=== PATIENT | female | born 1980 | race Caucasian/White ===

== ENCOUNTER 2016-09-14 01:52 | Observation (INO) | payer OTHER ==
--- NOTE | ~2016-09-14 | CR20 ---
[facility] A Service of [facility] RADIOLOGY TEXT RESULTS PATIENT: ERIC PAREKH LOCATION: [facility] : [birth year] UNIT #: [id number] AGE: [address]: EDGAR SALMERON APRN SEX: F ORDER DR: [id number] [facility] [address] [place], [place] [address] [id number] E MR#: [id number] Acc #: [id number] NAME: ERIC PAREKH : 1980 SEX: F STUDY DATE/TIME: 09/14/2016 1:01 UNIT: [facility] ROOM: STUDY DESCRIPTION: CR Ankle Min 3 Views Lt Attending Physician: Edgar Salmeron Aprn Ordering Physician: Pasha Cordon M.D. Primary Care Physician: Primary Care Physician No MEDICAL IMAGING REPORT This report is preliminary unless electronic signature is present EXAM Left ankle, 09/14/2016 INDICATION Fell down stairs tonight. Pain and swelling laterally, bruising. TECHNIQUE 3 views left ankle. No comparisons. FINDINGS There is a complete distal transverse fracture through the fibula. There is overlying soft tissue swelling. There is interarticular extension of the fracture. Some of the views are obscured by overlying brace or splint artifact. The ankle mortise appears intact otherwise. No additional fracture. There are degenerative changes in the tibiotalar joint and flattening of the talar dome. IMPRESSION 1. There is a complete nondisplaced fracture transversely through the distal fibula. There is interarticular extension. Overlying soft tissue swelling. 2. Degenerative change of the tibiotalar joint with flattening of the talar dome. STAT * RESULT Dictated by... Rickey Cisneros M.D. THIS IS AN ELECTRONICALLY VERIFIED REPORT [facility] A Service of [facility] RADIOLOGY TEXT RESULTS PATIENT: ERIC PAREKH LOCATION: [facility] : 82 UNIT #: [id number] AGE: [address]: EDGAR SALMERON APRN SEX: F ORDER DR: Rickey Cisneros M.D. at 09/14/2016 6:28 AM JACOBY/linda TD: 09/14/2016 04:56 JOB #: [id number] MEDICAL IMAGING REPORT Page 1 of 1 COPY
--- NOTE | ~2016-09-14 | CR252 ---
[facility] A Service of [facility] RADIOLOGY TEXT RESULTS PATIENT: ERIC PAREKH LOCATION: [facility] 458-01 : 82 UNIT #: [id number] AGE: [address]: Emanuel Abdi MD SEX: F ORDER DR: [id number] [facility] [address] [facility] [place], [place] [address] [id number] MR#: [id number] Acc #: [id number] NAME: ERIC PAREKH : 1980 SEX: F STUDY DATE/TIME: 09/14/2016 1:06 UNIT: [facility] ROOM: STUDY DESCRIPTION: CR Tibia and Fibula 2 Views Lt Attending Physician: Edgar Salmeron Aprn Ordering Physician: Pasha Cordon M.D. Primary Care Physician: Primary Care Physician No MEDICAL IMAGING REPORT This report is preliminary unless electronic signature is present EXAM Left tibia and fibula 09/14/2016 INDICATION Ankle fracture. Fell down the steps tonight. Pain. TECHNIQUE 2 views of the tib-fib performed on the left. COMPARISON None. FINDINGS There is degenerative change of the tibiotalar joint with flattening of the talar dome. There is a transversely oriented complete fracture through the distal aspect of the fibula better demonstrated on the ankle series same date. No additional fracture. IMPRESSION 1. The patient has a known fracture through the distal aspect of the fibula. No additional fracture is identified on the tib-fib series. 2. Degenerative changes of the tibiotalar joint. Dictated by... Rickey Cisneros M.D. THIS IS AN ELECTRONICALLY VERIFIED REPORT Rickey Cisneros M.D. at 09/14/2016 10:01 PM JACOBY/lynne TD: 09/14/2016 06:50 JOB #: [id number] [facility] A Service of [facility] RADIOLOGY TEXT RESULTS PATIENT: ERIC PAREKH LOCATION: [facility] 458-01 : [birth year] UNIT #: [id number] AGE: [address]: Emanuel Abdi MD SEX: F ORDER DR: MEDICAL IMAGING REPORT Page 1 of 1 COPY
--- NOTE | ~2016-09-14 | HP ---
Unit #: [id number] #: [id number] Patient: ERIC PAREKH [id number] [address] [place], [place] [address] [id number] I MR#: [id number] NAME: ERIC PAREKH ROOM: 458 Age: 36 Sex: F Admission Date: 09/14/2016 : 1980 Attending Physician: Emanuel Abdi M.D. Primary Care Physician: No Primary Care Physician HISTORY AND PHYSICAL CHIEF COMPLAINT Left ankle injury. HISTORY OF PRESENT ILLNESS Eric is a 36-year-old female who reports that she tripped going down some steps inverting her left ankle. She was taken to the emergency room where x-rays were taken. She was noted to have a minimally displaced Gurrola A distal fibula fracture of the left ankle. She also noticed some pain in the right ankle and was having difficulty weight bearing. She had some difficulty with pain management. My partner was called and she was placed in observation overnight for pain control. On evaluation this morning, pain is much improved. She was resting in bed. She denied any other injuries. No prior problems with her ankles. She describes a dull ache. It is worse with motion, better with rest. No loss of consciousness with the injury. No other symptoms related. PAST MEDICAL HISTORY 1. History of brain aneurysms. 2. Ovary surgery. PAST SURGICAL HISTORY 1. Clipping of three brain aneurysms. 2. Ovarian surgery. HOME MEDICATIONS None. ALLERGIES No known drug allergies. SOCIAL HISTORY The patient reports that she smokes about one pack per week of cigarettes. She denies alcohol or drug use. She is currently unemployed. She lives with her mother and stepfather and her son. REVIEW OF SYSTEMS No other pertinent positives or negatives noted other than what is mentioned in the HPI. PHYSICAL EXAMINATION GENERAL: This patient is alert and oriented for examination. She is in no acute distress. VITAL SIGNS: Temperature 97.7 degrees Fahrenheit, pulse 84, respiratory rate 22, 100% oxygen saturation on room air, blood pressure 112/83. Unit #: [id number] #: [id number] Patient: ERIC PAREKH HEENT: Head is atraumatic, normocephalic. Extraocular movements intact. Mucous membranes moist. Cervical spine is midline. No appreciable JVD. Full neck motion. CHEST: Breathing is unlabored, chest rise symmetric. Pulse - regular rate and rhythm. ABDOMEN: Soft, nontender, nondistended. EXTREMITIES: No clubbing, cyanosis or edema of the extremities. No skin lesions. Focus examination of the left lower extremity reveals mild swelling about the ankle joint. Tenderness to palpation over the distal fibula. No skin lesions. Compartments are soft. Normal motor and sensory examination. Examination of the right lower extremity reveals mild tenderness about the medial joint of the ankle. Minimal swelling. Ankle motion tolerated. No skin lesions. Normal motor and sensory examination. Foot warm and well perfused. DIAGNOSTIC STUDIES IMAGING: X-rays were reviewed of the left ankle and leg. Minimally displaced Gurrola A transverse distal fibula fracture. X-rays of the right foot reveal age indeterminate fracture of the distal fibula. This is per the report. This appears to be a small fragment off the distal fibula. Certainly could be a small component of an acute fracture. LABORATORY: BMP normal. CBC within normal limits. Hemoglobin 11.9. IMPRESSION Left Gurrola A distal fibula fracture, initial encounter. Possible right distal fibula fracture, initial encounter. PLAN She has a boot for the left ankle. I will let her weight bear as tolerated on the right ankle and toe touch weight bearing on the left side. We will order physical therapy. Pain medication provided. She can be discharged home later today. She will follow up with me in seven to ten days. The patient agreed with the plan. All of her questions were answered today. Dictated by Joe Alarcon M.D. EDE/flori TD: 09/14/2016 11:44 JOB #: [id number] Unit #: [id number] #: [id number] Patient: ERIC PAREKH HISTORY AND PHYSICAL Page 1 of 1 X X HISTORY AND PHYSICAL
--- NOTE | ~2016-09-14 | CR126 ---
[facility] A Service [facility] RADIOLOGY TEXT RESULTS PATIENT: ERIC PAREKH LOCATION: [facility] 458-01 : [birth year] UNIT #: [id number] AGE: [address]: Emanuel Abdi MD SEX: F ORDER DR: [id number] [facility] [address] [facility] [place], [place] [address] [id number] E MR#: [id number] Acc #: [id number] NAME: ERIC PAREKH : 1980 SEX: F STUDY DATE/TIME: 09/14/2016 1:13 UNIT: [facility] ROOM: STUDY DESCRIPTION: CR Foot Complete Min 3 View Lt Attending Physician: Edgar Salmeron Aprn Ordering Physician: Pasha Cordon M.D. Primary Care Physician: Primary Care Physician No MEDICAL IMAGING REPORT This report is preliminary unless electronic signature is present EXAM Left foot 09/14/2016 INDICATION Trauma, fell down the stairs, foot and ankle pain. TECHNIQUE 3 views left foot. COMPARISON None. FINDINGS There is a transversely oriented complete fracture through the distal fibula. See the ankle series same date for further details. Degenerative changes of the tibiotalar joint. IMPRESSION 1. The patient has a transversely oriented complete fracture through the distal fibula. There is soft tissue swelling. 2. Degenerative change of the tibiotalar joint. 3. No additional fracture. Mild degenerative change of the first MTP joint. Dictated by... Rickey Cisneros M.D. THIS IS AN ELECTRONICALLY VERIFIED REPORT Rickey Cisneros M.D. at 09/14/2016 10:01 PM JACOBY/lynne TD: 09/14/2016 06:56 [facility] A Service [facility] RADIOLOGY TEXT RESULTS PATIENT: ERIC PAREKH LOCATION: [facility] 458-01 : [birth year] UNIT #: [id number] AGE: [address]: Emanuel Abdi MD SEX: F ORDER DR: JOB #: [id number] MEDICAL IMAGING REPORT Page 1 of 1 COPY
--- NOTE | ~2016-09-14 | DS ---
Unit #: [id number] #: [id number] Patient: ERIC PAREKH [id number] [address] [place], [place] [address] [id number] MR#: [id number] NAME: ERIC PAREKH ROOM: 458 Age: 36 Sex: F Admission Date: 09/14/2016 : 1980 Discharge Date: 09/14/2016 Attending Physician: Emanuel Abdi M.D. Primary Care Physician: No Primary Care Physician DISCHARGE SUMMARY DISCHARGE DIAGNOSIS Left distal fibular ankle fracture, possible right distal fibular ankle fracture. DISCHARGE MEDICATION Percocet. HOSPITAL COURSE The patient was admitted for pain control. She worked with therapy and is felt to be stable for discharge home later in the day. She was in observation status. DISCHARGE DISPOSITION Home. DISCHARGE INSTRUCTIONS 1. The patient is toe-touch weightbearing on the left lower extremity, weightbearing as tolerated on the right lower extremity. 2. She will ice and elevate both ankles. 3. She will follow up in my office in 7-10 days. Dictated by... Joe Alarcon M.D. EDE/emma TD: 09/14/2016 11:45 JOB #: [id number] DISCHARGE SUMMARY Page 1 of 1 X X DISCHARGE SUMMARY
--- NOTE | ~2016-09-14 | CR127 ---
[facility] A Service of [facility] RADIOLOGY TEXT RESULTS PATIENT: ERIC PAREKH LOCATION: [facility] [id number] : [birth year] UNIT #: [id number] AGE: [address]: Emanuel Abdi MD SEX: F ORDER DR: [id number] [facility] [address] [facility]. [place], [place] [address] [id number] E MR#: [id number] Acc #: [id number] NAME: ERIC PAREKH : 1980 SEX: F STUDY DATE/TIME: 09/14/2016 5:58 UNIT: [facility] ROOM: STUDY DESCRIPTION: CR Foot Complete Min 3 View Rt Attending Physician: Edgar Salmeron Aprn Ordering Physician: Edgar Salmeron Aprn Primary Care Physician: No Primary Care Physician MEDICAL IMAGING REPORT This report is preliminary unless electronic signature is present EXAM Right foot three views HISTORY Pain with weight-bearing, fell down stairs tonight. COMMENT 3 views of the right foot are reviewed. No prior study of the right foot. There is a fracture at the distal fibula, age-indeterminate. This would be better seen on the ankle film. It could be acute. Visualized fracture is horizontally oriented at the distal end of the fibula displaced by a few millimeters. IMPRESSION 1. Partial demonstration of a age-indeterminate fracture of the distal fibula. Recommend correlation with ankle films, right. Dictated by... Katlyn De Leon M.D. THIS IS AN ELECTRONICALLY VERIFIED REPORT Katlyn De Leon M.D. at 09/14/2016 9:36 AM ALEXANDRA/brittany TD: 09/14/2016 08:12 JOB #: [id number] MEDICAL IMAGING REPORT Page 1 of 1 COPY
[2016-09-14 08:47] LABS: BASOPHIL% 0.5 % (0-2.5); EOSINOPHIL# 0.3 X10e3 (0-0.7); EOSINOPHIL% 3.7 % (0.0-7.0); HEMATOCRIT 36.2 % (35.0-45.0); HEMOGLOBIN 11.9 gm/dL (12.0-16.0); LYMPHOCYTE# 2.1 X10e3 (1.0-3.5); LYMPHOCYTE% 24.4 % (17.0-45.0); MEAN CELL VOLUME 82.6 FL (83-96); MEAN CORPUSCULAR HEMOGLOBIN 27.3 PG (28-34); MEAN PLATELET VOLUME 7.3 FL (6.5-11.5); MONOCYTE% 12.3 % (3.0-12.0); NEUTROPHIL% 59.1 % (40-75); PLATELET COUNT 299 X10e3 (140-420); RED BLOOD COUNT 4.38 X10e (3.90-5.30); RED CELL DISTRIBUTION WIDTH 14.5 % (11.0-15.5); WHITE BLOOD COUNT 8.4 X10e3 (4.0-10.5)
[2016-09-14 08:53] LABS: DIFF IND NO
[2016-09-14 09:38] LABS: BUN/CREATININE RATIO 18.75; CALCIUM SERUM 8.8 mg/dL (8.4-10.2); CREATININE SERUM 0.8 mg/dL (0.6-1.4); GLOM FILT RATE Estimated 96.3 mL/min (>60); POTASSIUM 3.5 mmol/L (3.5-5.1)
[2016-09-14] MEDS ORDERED: PERCOCET5/325 PO (16:08)
== END 2016-09-14 19:20 | disposition home or self-care (01) ==
LOC: CED 01:52 → CEDOF 06:56 → C4B 09:23
PROVIDERS: Nurse Practitioner Family
DX: S82.425A Nondisplaced transverse fracture of shaft of left fibula, initial encounter for closed fracture (principal); S82.491A Other fracture of shaft of right fibula, initial encounter for closed fracture; W10.9XXA Fall (on) (from) unspecified stairs and steps, initial encounter; Y92.009 Unspecified place in unspecified non-institutional (private) residence as the place of occurrence of the external cause; M19.072 Primary osteoarthritis, left ankle and foot; F17.210 Nicotine dependence, cigarettes, uncomplicated; Z86.79 Personal history of other diseases of the circulatory system; Z98.890 Other specified postprocedural states
CPT/HCPCS: 29515; 36415; 73590; 73610; 73630; 80048; 85025; 96374; 96375; 97116; 97161; 97530; 99285; G0378; J1170; J3010